=== PATIENT | male | born 1955 | race Caucasian/White ===

== ENCOUNTER → 2017-10-17 | Outpatient (CLI) | payer OTHER ==
[2015-09-04 18:40] VITALS: BP 116/73
[~2017-10-17] MED LIST: GLUC100018 PO; LOVA40TA2 PO
[2017-10-17 08:39] LABS: ALBUMIN 3.6 g/dL (3.4-5.0); CALCIUM 9.1 mg/dL (8.5-10.1); CREATININE 0.9 mg/dL (0.7-1.3); GFR 85.8; POTASSIUM 4.2 mmol/L (3.5-5.1); TOTAL BILIRUBIN 0.3 mg/dL (0.2-1.0); TOTAL PROTEIN 7.3 g/dL (6.4-8.2)
== END | disposition home or self-care (01) ==
LOC: LAB 07:36
PROVIDERS: ATTEND Family Medicine
DX: E78.4 Other hyperlipidemia (principal)
CPT/HCPCS: 36415; 80053; 80061

== ENCOUNTER → 2017-12-07 | Outpatient (CLI) | payer OTHER ==
[2015-09-04 18:40] VITALS: BP 116/73
--- NOTE | 2017-12-07 11:45 | RAD ---
Lumbar spine, 3 views, 12/07/2017: History: Low back pain The lumbar vertebral heights are well-maintained. There are moderate marginal spurs throughout the lumbar spine. There is mild disc space narrowing at multiple levels. There is moderate hypertrophic degenerative changes involving multiple facet joints bilaterally. No fracture or subluxation is evident. There is a small elongated left paraspinous calcification at the L2 level. Lower pelvic calcifications are compatible with phleboliths. IMPRESSION: 1. Moderate multilevel hypertrophic degenerative change throughout the lumbar spine. 2. No acute bony abnormality is detected. 3. Small left paraspinous calcification which may be vascular, however, a ureteral calculus cannot be excluded. Clinical correlation is suggested.
== END | disposition home or self-care (01) ==
LOC: DXRAD 10:23
PROVIDERS: ATTEND Family Medicine
DX: M54.31 Sciatica, right side (principal); M47.896 Other spondylosis, lumbar region; M48.061 Spinal stenosis, lumbar region without neurogenic claudication; I87.8 Other specified disorders of veins
CPT/HCPCS: 72100

== ENCOUNTER → 2019-01-14 | Outpatient (CLI) | payer OTHER ==
[2015-09-04 18:40] VITALS: BP 116/73
[2019-01-14 11:48] LABS: BASO # 0.1 x10^3/uL (0.0-0.2); BASO % 2 % (0-3); EOS # 0.3 x10^3/uL (0.0-0.7); EOS % 5 % (0-3); HEMOGLOBIN 14.7 g/dL (13.0-17.5); LYMPH % 20 % (24-48); MEAN CORPUSCULAR HEMOGLOBIN 29 pg (25-35); MEAN CORPUSCULAR HGB CONC 33 g/dL (31-37); MEAN CORPUSCULAR VOLUME 85 fL (79-100); MONO # 0.6 x10^3/uL (0.0-1.1); MONO % 12 % (0-9); NEUT # 3.1 x10^3uL (1.8-7.7); NEUT % 61 % (31-73); PLATELET COUNT 274 x10^3/uL (140-400); RED BLOOD COUNT 5.16 x10^6/uL (4.30-5.70); RED CELL DISTRIBUTION WIDTH 14.8 % (11.5-14.5); WHITE BLOOD COUNT 5.1 x10^3/uL (4.0-11.0)
[2019-01-14 12:37] LABS: ALBUMIN 3.6 g/dL (3.4-5.0); ALBUMIN/GLOBULIN RATIO 1.1 (1.0-1.7); CALCIUM 8.8 mg/dL (8.5-10.1); GFR 75.7; POTASSIUM 4.6 mmol/L (3.5-5.1); TOTAL BILIRUBIN 0.2 mg/dL (0.2-1.0); TOTAL PROTEIN 6.8 g/dL (6.4-8.2); URIC ACID 4.3 mg/dL (3.5-7.2)
[2019-01-14 13:00] LABS: SEDIMENTATION RATE 2 (0-15)
--- NOTE | 2019-01-14 13:10 | RAD ---
Left wrist, 3 views, 01/14/2019: HISTORY: Wrist pain and lump There is widening of the distance between the navicular and lunate bones compatible with ligamentous injury. A similar appearance was present on forearm radiographs from 09/04/2015. There is narrowing of the radiocarpal articulation with sclerotic change involving the articular surfaces at this level. There is spurring along the radial margin of the navicular bone. Several small periarticular calcifications or old bone fragments are evident. No acute fracture or dislocation is seen. There is mild soft tissue swelling. IMPRESSION: 1. Moderate degenerative change at the radiocarpal articulation with several small periarticular calcifications. 2. Widening of the scapholunate distance compatible with old ligamentous injury. Electronically signed by: Charles Abdul MD (01/14/2019 1:07 PM) [facility]
[2019-01-15 04:06] LABS: RHEUMATOID FACTOR <10.0 IU/mL (0.0-13.9)
[2019-01-16 17:09] LABS: ANA INTERP Negative (.)
== END | disposition home or self-care (01) ==
LOC: PMG 10:03
PROVIDERS: ATTEND Physician Assistant Medical
DX: M19.032 Primary osteoarthritis, left wrist (principal); M25.832 Other specified joint disorders, left wrist
CPT/HCPCS: 36415; 73110; 80053; 84550; 85025; 85651; 86038; 86431

== ENCOUNTER 2019-07-11 08:26 | Inpatient (IN) | payer OTHER ==
[~2019-07-11] VITALS: Ht 182.9 cm; Wt 89.8 kg
[2019-07-11] MEDS ORDERED: IV NORMAL SALINE 1,000ML 1,000 ML IV SCH (08:36)
--- NOTE | 2019-07-11 08:42 | EKG ---
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
[2019-07-11] MEDS ORDERED: NITROGLYCERIN SUBLINGUAL 0.4 MG BOTTLE OF 25. SL PRN ×2 (08:45→10:45)
[2019-07-11] MEDS ORDERED: ASPIRIN 81 MG TAB.CHEW PO ONE ×2 (08:45→15:15)
[2019-07-11 09:06] LABS: BASO # 0.1 x10^3/uL (0.0-0.2); BASO % 1 % (0-3); EOS # 0.2 x10^3/uL (0.0-0.7); EOS % 3 % (0-3); HEMATOCRIT 44.2 % (39.0-53.0); HEMOGLOBIN 14.6 g/dL (13.0-17.5); LYMPH # 0.7 x10^3/uL (1.0-4.8); LYMPH % 14 % (24-48); MEAN CORPUSCULAR HEMOGLOBIN 29 pg (25-35); MEAN CORPUSCULAR HGB CONC 33 g/dL (31-37); MEAN CORPUSCULAR VOLUME 87 fL (79-100); MONO # 0.3 x10^3/uL (0.0-1.1); MONO % 6 % (0-9); NEUT # 3.7 x10^3uL (1.8-7.7); NEUT % 75 % (31-73); PLATELET COUNT 233 x10^3/uL (140-400); RED BLOOD COUNT 5.07 x10^6/uL (4.30-5.70); RED CELL DISTRIBUTION WIDTH 14.8 % (11.5-14.5)
--- NOTE | 2019-07-11 09:13 | RAD ---
EXAM: CHEST ONE VIEW. HISTORY: Chest pain. COMPARISON: None. FINDINGS: A frontal view of the chest is obtained. There is mild atelectasis in the left base. There are no confluent infiltrates. There is no pneumothorax or pleural effusion. The heart is not enlarged. IMPRESSION: 1. No confluent infiltrates. Electronically signed by: Lazara Galeas MD (07/11/2019 9:10 AM) [facility]
[2019-07-11 09:22] LABS: ALBUMIN 3.4 g/dL (3.4-5.0); CALCIUM 8.2 mg/dL (8.5-10.1); CREATININE 1.1 mg/dL (0.7-1.3); GFR 67.8; MAGNESIUM 1.9 mg/dL (1.8-2.4); POTASSIUM 3.7 mmol/L (3.5-5.1); TOTAL BILIRUBIN 0.3 mg/dL (0.2-1.0); TOTAL PROTEIN 6.8 g/dL (6.4-8.2)
--- NOTE | 2019-07-11 09:57 | PHYS DOC ---
Past History Past Medical History: High Cholesterol Past Surgical History: Other Alcohol Use: None Drug Use: None Adult General Chief Complaint Chief Complaint: CHEST PAIN [facility] HPI Patient is a 63-year-old male who presents with complaint of chest pain that started about an hour prior to arrival. Patient indicates that pain is in his left upper chest. He states that at its maximal intensity, pain was approximately a 6 out of 10. He states that he became very diaphoretic but denied any nausea or vomiting. He states that at that point he became very concerned. Currently rates his pain to be a 2 out of 10. He denies any shortness of breath. Patient states that onset of pain was at rest.[] Review of Systems Review of Systems Constitutional: Denies fever or chills [] Respiratory: Denies cough or shortness of breath [] Cardiovascular: No additional information not addressed in HPI [] GI: Denies abdominal pain, nausea, vomiting or diarrhea [] Integument: Denies rash or skin lesions [] Neurologic: Denies headache, focal weakness or sensory changes [] All other systems were reviewed and found to be within normal limits, except as documented in this note. Current Medications Current Medications Current Medications Medications (Trade) Dose Ordered Sig/Anita Start Time Stop Time Status Last Admin Dose Admin Aspirin (Children'S Aspirin) 324 mg 1X ONCE 07/11/19 08:45 07/11/19 08:51 DC 07/11/19 08:53 324 MG Nitroglycerin (Nitrostat) 0.4 mg PRN Q5MIN PRN 07/11/19 08:45 07/12/19 08:44 Sodium Chloride 1,000 ml @ 1,000 mls/hr Q1H 07/11/19 08:36 07/11/19 09:35 DC Allergies Allergies Allergies Coded Allergies Type Severity Reaction Last Updated Verified No Known Drug Allergies 01/09/14 No Physical Exam Physical Exam Constitutional: Well developed, well nourished, no acute distress, non-toxic appearance. [] HENT: Normocephalic, atraumatic, bilateral external ears normal, oropharynx moist, no oral exudates, nose normal. [] Eyes: PERRLA, EOMI, conjunctiva normal, no discharge. [] Neck: Normal range of motion, no tenderness, supple, no stridor. [] Cardiovascular: Regular rate and rhythm[] Lungs & Thorax: Bilateral breath sounds clear to auscultation [] Abdomen: Bowel sounds normal, soft, no tenderness. [] Skin: Warm, dry, no erythema, no rash. [] Extremities: No tenderness, no cyanosis, no clubbing, ROM intact, no edema. [] Neurologic: Alert and oriented X 3, no focal deficits noted. [] Current Patient Data Lab Results Laboratory Tests Test 07/11/19 08:41 White Blood Count 5.0 x10^3/uL (4.0-11.0) Red Blood Count 5.07 x10^6/uL (4.30-5.70) Hemoglobin 14.6 g/dL (13.0-17.5) Hematocrit 44.2 % (39.0-53.0) Mean Corpuscular Volume 87 fL (79-100) Mean Corpuscular Hemoglobin 29 pg (25-35) Mean Corpuscular Hemoglobin Concent 33 g/dL (31-37) Red Cell Distribution Width 14.8 % (11.5-14.5) H Platelet Count 233 x10^3/uL (140-400) Neutrophils (%) (Auto) 75 % (31-73) H Lymphocytes (%) (Auto) 14 % (24-48) L Monocytes (%) (Auto) 6 % (0-9) Eosinophils (%) (Auto) 3 % (0-3) Basophils (%) (Auto) 1 % (0-3) Neutrophils # (Auto) 3.7 x10^3uL (1.8-7.7) Lymphocytes # (Auto) 0.7 x10^3/uL (1.0-4.8) L Monocytes # (Auto) 0.3 x10^3/uL (0.0-1.1) Eosinophils # (Auto) 0.2 x10^3/uL (0.0-0.7) Basophils # (Auto) 0.1 x10^3/uL (0.0-0.2) Sodium Level 140 mmol/L (136-145) Potassium Level 3.7 mmol/L (3.5-5.1) Chloride Level 105 mmol/L (98-107) Carbon Dioxide Level 28 mmol/L (21-32) Anion Gap 7 (6-14) Blood Urea Nitrogen 14 mg/dL (8-26) Creatinine 1.1 mg/dL (0.7-1.3) Estimated GFR (Cockcroft-Gault) 67.8 BUN/Creatinine Ratio 13 (6-20) Glucose Level 177 mg/dL (70-99) H Calcium Level 8.2 mg/dL (8.5-10.1) L Magnesium Level 1.9 mg/dL (1.8-2.4) Total Bilirubin 0.3 mg/dL (0.2-1.0) Aspartate Amino Transferase (AST) 17 U/L (15-37) Alanine Aminotransferase (ALT) 19 U/L (16-63) Alkaline Phosphatase 72 U/L (46-116) Troponin I Quantitative < 0.017 ng/mL (0-0.055) SY-Pjy-Z-Type Natriuretic Peptide 22 pg/mL (0-124) Total Protein 6.8 g/dL (6.4-8.2) Albumin 3.4 g/dL (3.4-5.0) Albumin/Globulin Ratio 1.0 (1.0-1.7) EKG EKG EKG demonstrates normal sinus rhythm with rate of 70.[] Radiology/Procedures Radiology/Procedures [] Impressions: PROCEDURE: PORTABLE CHEST 1V EXAM: CHEST ONE VIEW. HISTORY: Chest pain. COMPARISON: None. FINDINGS: A frontal view of the chest is obtained. There is mild atelectasis in the left base. There are no confluent infiltrates. There is no pneumothorax or pleural effusion. The heart is not enlarged. IMPRESSION: 1. No confluent infiltrates. Electronically signed by: Lazara Galeas MD (07/11/2019 9:10 AM) [facility] Course & Med Decision Making Course & Med Decision Making Pertinent Labs and Imaging studies reviewed. (See chart for details) [] Dragon Disclaimer Dragon Disclaimer This electronic medical record was generated, in whole or in part, using a voice recognition dictation system. Departure Departure: Impression: Primary Impression: Chest pain Disposition: ADMITTED INPATIENT Admitting Physician: Carlos Cerda Condition: IMPROVED Referrals: ANIL CHRISTIANSON MD (PCP) Problem Qualifiers Primary Impression: Chest pain Chest pain type: unspecified Qualified Codes: R07.9 - Chest pain, unspecified VANESSA VERDE Jr. DO Jul 11, 2019 09:57
[2019-07-11] MEDS ORDERED: MORPHINE SULFATE 2 MG/ML DISP.SYRIN. IV PRN (10:45)
[2019-07-11] MEDS ORDERED: ONDANSETRON PF 4 MG/2 ML VIAL. IV PRN (10:45)
[2019-07-11 11:37] LABS: BILIRUBIN,URINE NEG (NEG); CLARITY,URINE HAZY; COLOR,URINE YELLOW; GLUCOSE,URINE NEG (NEG)
[2019-07-11 11:38] LABS: BACTERIA,URINE 0 /HPF (0-FEW); HYALINE CASTS, URINE FEW /HPF; NITRITE,URINE NEG (NEG); UROBILINOGEN,URINE 0.2 mg/dL (0.2 mg/dL)
--- NOTE | 2019-07-11 13:51 | PDOC2 ---
WALT BEEBE VOUCHER EXAMINER 07/11/19 1351: CARDIAC CONSULT DATE OF CONSULT Date Of Consult DATE: 07/11/19 TIME: 13:49 REASON FOR CONSULT Reason for Consult Chest pain REFERRING PHYSICIAN Referring Physician Dr. Tejada SOURCE Source: Chart review, Patient HPI History of Present Illness This is a 63 yo male who presented secondary to chest pain. Patient reports pain began this morning while standing in the bathroom getting ready for the day. Pain located across his central chest. Describes as pressure. Associated with diaphoresis. No shortness of breath, palpitation, dizziness, or nausea/vomiting. Patient reports friend suffered heart attack about a month ago so he decided to come to the ED for further evaluation. Pain resolved prior to arrival without intervention. Patient additionally denies any recent WARD or chest pain upon exe rtion. No h/o CAD. PAST MEDICAL HISTORY Cardiovascular: hyperipidemia Musculoskeletal: Osteoarthritis PAST SURGICAL HISTORY Past Surgical History: Hernia Repair, No pertinent history FAMILY HISTORY Family History: Hypertension SOCIAL HISTORY Smoke: No ALCOHOL: none Drugs: None Lives: with Family CURRENT MEDICATIONS Current Medications Current Medications Aspirin (Children'S Aspirin) 324 mg 1X ONCE PO Last administered on 07/11/19at 08:53; Start 07/11/19 at 08:45; Stop 07/11/19 at 08:51; Status DC Nitroglycerin (Nitrostat) 0.4 mg PRN Q5MIN PRN SL CP RATING > 1/10; Start 07/11/19 at 08:45; Stop 07/11/19 at 12:26; Status DC Sodium Chloride 1,000 ml @ 1,000 mls/hr Q1H IV ; Start 07/11/19 at 08:36; Stop 07/11/19 at 09:35; Status DC Ondansetron HCl (Zofran) 4 mg PRN Q4HRS PRN IV NAUSEA/VOMITING; Start 07/11/19 at 10:45; Stop 07/12/19 at 10:44 Morphine Sulfate (Morphine 2mg Syringe) 2 mg PRN Q2HR PRN IV PAIN; Start 07/11/19 at 10:45; Stop 07/12/19 at 10:44 Nitroglycerin (Nitrostat) 0.4 mg PRN Q5MIN PRN SL CHEST PAIN; Start 07/11/19 at 10:45; Stop 07/12/19 at 10:44 Active Scripts Active Reported Lovastatin 40 Mg Tablet 40 Mg PO Glucosamine (Glucosamine Sulfate 2KCL) 1,000 Mg Tablet 1,000 Mg PO ALLERGIES Allergies: Coded Allergies: No Known Drug Allergies (Unverified , 01/09/14) ROS Review of Systems 14 point ROS conducted with pertinent positives noted above in HPI. PHYSICAL EXAM General: Alert, Oriented X3, Cooperative, No acute distress HEENT: Atraumatic, Mucous membr. moist/pink Lungs: Clear to auscultation, Normal air movement Heart: Regular rate, Normal S1, Normal S2, No murmurs Abdomen: Soft, No tenderness Extremities: No edema, Normal pulses Skin: No breakdown Neuro: Normal speech, Sensation intact Psych/Mental Status: Mental status NL, Mood NL MUSCULOSKELETAL: No deformity, Osteoarthritic changes both hands VITALS Vital Signs Vital Signs Date Time Temp Pulse Resp B/P (MAP) Pulse Ox O2 Delivery O2 Flow Rate FiO2 07/11/19 10:11 98.2 79 18 98 Room Air LABS LABS Laboratory Tests Test 07/11/19 08:41 07/11/19 11:05 White Blood Count 5.0 x10^3/uL (4.0-11.0) Red Blood Count 5.07 x10^6/uL (4.30-5.70) Hemoglobin 14.6 g/dL (13.0-17.5) Hematocrit 44.2 % (39.0-53.0) Mean Corpuscular Volume 87 fL (79-100) Mean Corpuscular Hemoglobin 29 pg (25-35) Mean Corpuscular Hemoglobin Concent 33 g/dL (31-37) Red Cell Distribution Width 14.8 % (11.5-14.5) Platelet Count 233 x10^3/uL (140-400) Neutrophils (%) (Auto) 75 % (31-73) Lymphocytes (%) (Auto) 14 % (24-48) Monocytes (%) (Auto) 6 % (0-9) Eosinophils (%) (Auto) 3 % (0-3) Basophils (%) (Auto) 1 % (0-3) Neutrophils # (Auto) 3.7 x10^3uL (1.8-7.7) Lymphocytes # (Auto) 0.7 x10^3/uL (1.0-4.8) Monocytes # (Auto) 0.3 x10^3/uL (0.0-1.1) Eosinophils # (Auto) 0.2 x10^3/uL (0.0-0.7) Basophils # (Auto) 0.1 x10^3/uL (0.0-0.2) Sodium Level 140 mmol/L (136-145) Potassium Level 3.7 mmol/L (3.5-5.1) Chloride Level 105 mmol/L (98-107) Carbon Dioxide Level 28 mmol/L (21-32) Anion Gap 7 (6-14) Blood Urea Nitrogen 14 mg/dL (8-26) Creatinine 1.1 mg/dL (0.7-1.3) Estimated GFR (Cockcroft-Gault) 67.8 BUN/Creatinine Ratio 13 (6-20) Glucose Level 177 mg/dL (70-99) Calcium Level 8.2 mg/dL (8.5-10.1) Magnesium Level 1.9 mg/dL (1.8-2.4) Total Bilirubin 0.3 mg/dL (0.2-1.0) Aspartate Amino Transf (AST/SGOT) 17 U/L (15-37) Alanine Aminotransferase (ALT/SGPT) 19 U/L (16-63) Alkaline Phosphatase 72 U/L (46-116) Troponin I Quantitative < 0.017 ng/mL (0-0.055) DZ-Kve-X-Type Natriuretic Peptide 22 pg/mL (0-124) Total Protein 6.8 g/dL (6.4-8.2) Albumin 3.4 g/dL (3.4-5.0) Albumin/Globulin Ratio 1.0 (1.0-1.7) Urine Collection Type Unknown Urine Color Yellow Urine Clarity Hazy Urine pH 6.0 Urine Specific [place] 1.025 Urine Protein Trace (NEG-TRACE) Urine Glucose (UA) Neg mg/dL (NEG) Urine Ketones (Stick) Neg mg/dL (NEG) Urine Blood Neg (NEG) Urine Nitrite Neg (NEG) Urine Bilirubin Neg (NEG) Urine Urobilinogen Dipstick 0.2 mg/dL (0.2 mg/dL) Urine Leukocyte Esterase Neg (NEG) Urine RBC 1-2 /HPF (0-2) Urine WBC 1-4 /HPF (0-4) Urine Squamous Epithelial Cells None /LPF Urine Bacteria 0 /HPF (0-FEW) Urine Hyaline Casts Few /HPF Urine Mucus Mod /LPF ASSESSMENT/PLAN Assessment/Plan 1. Chest pain with typical features 2. NSTEMI; second troponin 0.28 3. Hyperlipidemia Recommendations Start heparin gtt per CV protocol ASA, BB, statin Lipid panel Echo to assess LV systolic function Will transfer to [facility] for cardiac cath. NPO p MN. STEFANIE PATTERSON MD 07/11/192030: CARDIAC CONSULT ASSESSMENT/PLAN Assessment/Plan Patient seen and examined. Agree with TOOL AND DIE ASSEMBLER's assessment and plan. Patient with CP with typical features and elevated troponin c/w NSTEMI Agree with heparin infusion per protocol Plan cardiac cath tomorrow at [facility]. Risks and benefits explained and he is agreeable. Thank you for your consultation WALT BEEBE APRN Jul 11, 2019 13:51 STEFANIE PATTERSON MD Jul 11, 2019 20:31
[2019-07-11 15:07] VITALS: BP 137/86
[2019-07-11] MEDS ORDERED: HEPARIN 25,000UTS/500ML PREMIX 500 ML IV PRN ×2 (15:30→17:30)
--- NOTE | 2019-07-11 16:16 | CARD ---
MR#: [id number] Date of Study: 07/11/2019 Ordering Physician: WALT BEEBE, Referring Physician: WALT BEEBE, Tech: Nandini Oliver RDCS APPROVED REPORT EXAM: Two-dimensional and M-mode echocardiogram with Doppler and color Doppler. Other Information Quality : AverageHR: 76bpm Rhythm : NSR INDICATION Chest Pain 2D DIMENSIONS RVDd3.0 (2.9-3.5cm)Left Atrium(2D)3.9 (1.6-4.0cm) IVSd1.6 (0.7-1.1cm)Aortic Root(2D)3.6 (2.0-3.7cm) LVDd4.5 (3.9-5.9cm)PWd1.1 (0.7-1.1cm) LVDs3.4 (2.5-4.0cm)FS (%) 25.7 % SV47.2 mlLVEF(%)50.7 (>50%) Aortic Valve AoV Peak Aydin.107.9cm/sAoV VTI19.0cm AO Peak GR.4.7mmHgAO Mean GR.2mmHg ISIDRO (VTI)3.33cm2 Mitral Valve MV E Btrvroaq90.8cm/sMV DECEL ICWB492rw MV A Xdthrpfr28.8cm/sE/A Ratio1.1 MV A [id number] Tricuspid Valve TR P. Glukptiy617wk/sRAP NMLRVFLJ9bmSh TR Peak Gr.51mxLzHDMB85ohXv LEFT VENTRICLE The left ventricle is normal size. There is mild concentric left ventricular hypertrophy. Left ventri luciana systolic function is low normal. The Ejection Fraction is 50%. Transmitral Doppler flow pattern i s Grade II-pseudonormal filling dynamics. RIGHT VENTRICLE The right ventricle is normal size. There is normal right ventricular wall thickness. The right ventr icular systolic function is normal. ATRIA The left atrium is borderline dilated. The right atrium size is normal. The interatrial septum is int act with no evidence for an atrial septal defect or patent foramen ovale as noted on 2-D or Doppler i maging. AORTIC VALVE The aortic valve is thickened but opens well. The aortic valve is trileaflet. Doppler and Color Flow revealed no significant aortic regurgitation. There is no significant aortic valvular stenosis. There is no aortic valvular vegetation. MITRAL VALVE The mitral valve is normal in structure and function. There is no evidence of mitral valve prolapse. There is no mitral valve stenosis. Doppler and Color-flow revealed trace to mild mitral regurgitation . TRICUSPID VALVE The tricuspid valve is normal in structure and function. Doppler and Color Flow revealed trace tricus pid regurgitation. The PA pressure was estimated at 27 mmHg. There is no tricuspid valve prolapse or vegetation. There is no tricuspid valve stenosis. PULMONIC VALVE The pulmonic valve is not well visualized. GREAT VESSELS The aortic root is normal in size. The ascending aorta is normal in size. The IVC is normal in size a nd collapses >50% with inspiration. PERICARDIAL EFFUSION There is no evidence of significant pericardial effusion. Critical Notification Critical Value: No <Conclusion> Left ventricle systolic function is low normal. The Ejection Fraction is 50%. Trace to mild mitral regurgitation. Trace tricuspid regurgitation. The PA pressure was estimated at 27 mmHg. There is no evidence of significant pericardial effusion. Signed by : Dominick Nicole, Electronically Approved : 07/11/2019 16:16:16
--- NOTE | 2019-07-11 16:40 | HP ---
ADMIT DATE: 07/11/2019 HISTORY OF PRESENT ILLNESS: The patient is a 63-year-old male patient, who came to the Emergency Room with complaint of a chest pressure that started about an hour prior to arrival. The pain was in his left upper chest. He stated at its maximum intensity, it was about approximately 6/10. He became very diaphoretic. He had mild nausea, but no vomiting, no radiation, and no shortness of breath. His pain has started at rest. By the time, he arrived to the Emergency Room, it was only 2/10 in severity. He was extensively investigated and has had an EKG, which showed that he was in normal sinus rhythm at the rate of 70 beats per minute. Chest x-ray showed there are no confluent infiltrates, pneumothorax, or pleural effusion. The heart is not enlarged. His lab work showed his first set of cardiac enzymes showed troponin to be less than 0.017. He was admitted to do 2 more sets of cardiac enzymes, to consult the dental manager, and check his fasting lipid profile if he stays overnight. PAST MEDICAL HISTORY: Significant for hyperlipidemia and benign prostatic hypertrophy. PAST SURGICAL HISTORY: Significant for bilateral inguinal hernia repair. He has had also a colonoscopy. ALLERGIES: He has no known drug allergies. MEDICATIONS: He is currently on no medication by prescription. He takes ibuprofen and other lovr-mko-iheqjsj medication as needed. FAMILY HISTORY: He has 5 siblings, 3 older and 2 younger, all healthy. His father is still alive at the age of 91 and mother alive at the age of 88. SOCIAL HISTORY: He is , never smoked, and does not drink alcohol or use recreational drugs. 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 REVIEW OF SYSTEMS: The patient denied any blurring of vision, cataract, glaucoma, or macular degeneration. 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 Denied any nosebleeds, stuffy nose, or postnasal drip. Denied any sore throat, sore tongue, toothache, hoarseness of voice, or difficulty swallowing. He did complain of nausea, but no vomiting. Denied any diarrhea or constipation. Denied any hematemesis, melena, or hematochezia. Denied any dysuria, frequency, or hematuria. Did complain of nocturia up to 3 times. He denied any orthopnea or paroxysmal nocturnal dyspnea. He denied any cough, phlegm, or hemoptysis. Denied any dizziness, lightheadedness, or vertigo. PHYSICAL EXAMINATION: GENERAL: On arrival to the Emergency Room, he looked well and was clearly in no apparent respiratory distress. No pallor, jaundice, cyanosis, or thyromegaly. No jugular venous distension. No limb edema. VITAL SIGNS: His temperature was 98.2, respiratory rate was 18, oxygen saturation was 98%, and heart rate was 79. HEAD, EYES, EARS, NOSE, AND THROAT: Showed normocephalic and atraumatic. NECK: Supple. HEART: Showed normal first and second heart sounds. No gallop or murmur. CHEST: Clear to auscultation. No crepitation or rhonchi. ABDOMEN: Distended, soft, and nontender. NEUROLOGIC: He was awake, alert, and responding appropriately. All cranial nerves were intact. EXTREMITIES: He moves extremities without difficulty. LABORATORY WORK: Showed a serum sodium 140, potassium 3.7, chloride 105, bicarbonate 28, anion gap of 7, BUN 14, and creatinine 1.1. Estimated GFR was 68 mL per minute, his glucose was 177, calcium was 8.2, and magnesium was 1.9. Total bilirubin, AST, ALT, and alkaline phosphatase were normal. Troponin was less than 0.017. Beta-natriuretic peptide was 22. Total protein was 6.8 and albumin was 3.7. His white cell count was 5000, hemoglobin 14.6, hematocrit 44, MCV 87, and platelet count 233,000 with a normal manual differential. His urinalysis was unremarkable. While I am dictating, his second set of cardiac enzymes showed his troponin was elevated at 0.283. ASSESSMENT AND PLAN: The patient was admitted with the chest pain. His troponin is trending up. He will be started on heparin drip; however, they consulted the Cardiology team and he might require be transferred to [facility] for cardiac catheterization. GILSON LAZO MD DR: RONDA/beckie JOB#: [id number] / [id number]
[2019-07-11] MEDS ORDERED: HEPARIN for IV BOLUS 10,000 UNIT/10 ML VIAL. IV ONE (17:30)
[2019-07-11] MEDS ORDERED: HEPARIN for IV BOLUS 10,000 UNIT/10 ML VIAL. IV PRN ×2 (17:30)
[2019-07-11] MEDS ORDERED: ATORVASTATIN CALCIUM 20 MG TABLET PO SCH (21:00)
[2019-07-11] MEDS ORDERED: METOPROLOL TART IMMED RELEASE 25 MG TABLET PO SCH (21:00)
[2019-07-12] MEDS ORDERED: ASPIRIN 325 MG TABLET PO SCH (08:00)
[2019-07-12 10:37] LABS: THYROID STIM HORMONE (TSH) 2.283 uIU/mL (0.358-3.740)
== END 2019-07-11 20:00 | disposition short-term general hospital (02) | DRG 282 ==
LOC: ER 08:26 → 1 SOUTH 12:17
PROVIDERS: ADMIT Internal Medicine; ATTEND Internal Medicine
DX: I21.4 Non-ST elevation (NSTEMI) myocardial infarction (principal); E78.00 Pure hypercholesterolemia, unspecified; E78.5 Hyperlipidemia, unspecified; M19.90 Unspecified osteoarthritis, unspecified site; N40.0 Benign prostatic hyperplasia without lower urinary tract symptoms; Z82.49 Family history of ischemic heart disease and other diseases of the circulatory system; Z79.899 Other long term (current) drug therapy
CPT/HCPCS: 36415; 71045; 80053; 80061; 81001; 83735; 83880; 84443; 84484; 85025; 85610; 85730; 93005; 93306; J1644; 99285-25

== ENCOUNTER → 2020-02-24 | Outpatient (CLI) | payer OTHER | END | disposition home or self-care (01) | LOC: LAB 08:04 | PROVIDERS: ATTEND Internal Medicine Cardiovascular Disease | DX: I25.10 Atherosclerotic heart disease of native coronary artery without angina pectoris (principal) | CPT/HCPCS: 80061 ==

== ENCOUNTER 2020-07-02 21:19 | Emergency (ER) | payer OTHER ==
[~2020-07-02] VITALS: Ht 180.3 cm; Wt 89.5 kg
[2020-07-02 21:33] VITALS: BP 126/60
[2020-07-02] MEDS: OXYMETAZOLINE 0.05% NASAL SPRAY 30ML BOTTLE. NS ONE (21:47)
--- NOTE | 2020-07-02 22:21 | PHYS DOC ---
Past History Past Medical History: [place]th[place], [place] Past Surgical History: Angioplasty, Other Additional Past Surgical Histo: cardiac stents;hernia repair Alcohol Use: None Drug Use: None General Adult EDM: Chief Complaint: NOSEBLEED HPI: HPI: 64-year-old male presents with nosebleed. 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 It seemed like it was on the left. The bleeding increased rapidly and he had difficulty getting it to stop. While he was trying direct pressure at home it seemed like the right nare started to bleed as well. He could not get it to stop so he came to the emergency room. The patient is on a blood thinner because he has 2 stents. He denies nausea, vomiting, dizziness, shortness of breath. He has no other complaints at this time. He denies fever or chills. He denies trauma. He does work outside in a [employer] environment. Review of Systems: Review of Systems: Constitutional: Denies fever or chills Eyes: Denies change in visual acuity HENT: Nosebleed Respiratory: Denies cough or shortness of breath Cardiovascular: Denies chest pain or edema GI: Denies abdominal pain, nausea, vomiting, bloody stools or diarrhea : Denies dysuria Musculoskeletal: Denies back pain or joint pain Integument: Denies rash Neurologic: Denies headache, focal weakness or sensory changes Endocrine: Denies polyuria or polydipsia Lymphatic: Denies swollen glands Psychiatric: Denies depression or anxiety Heart Score: Risk Factors: Risk Factors: DM, Current or recent (<one month) smoker, HTN, HLP, family history of CAD, obesity. Risk Scores: Score 0 - 3: 2.5% MACE over next 6 weeks - Discharge Home Score 4 - 6: 20.3% MACE over next 6 weeks - Admit for Clinical Observation Score 7 - 10: 72.7% MACE over next 6 weeks - Early Invasive Strategies Current Medications: Current Meds: Current Medications Medications (Trade) Dose Ordered Sig/Anita Start Time Stop Time Status Last Admin Dose Admin Oxymetazoline HCl (Afrin) 2 spray 1X ONCE 07/02/20 21:45 07/02/20 21:46 DC 07/02/20 21:47 2 SPRAY Allergies: Allergies: Allergies Coded Allergies Type Severity Reaction Last Updated Verified No Known Drug Allergies 07/02/20 No Physical Exam: PE: Constitutional: Well developed, well nourished, no acute distress, non-toxic appearance. [] HENT: Normocephalic, atraumatic, bilateral external ears normal, oropharynx moist, no oral exudates, nose with evidence of recent clot in the bilateral nares against the septum. [] Eyes: PERRLA, EOMI, conjunctiva normal, no discharge. [] Neck: Normal range of motion, no tenderness, supple, no stridor. [] Cardiovascular: Heart rate regular rhythm, no murmur [] Lungs & Thorax: Bilateral breath sounds clear to auscultation [] Abdomen: Bowel sounds normal, soft, no tenderness, no masses, no pulsatile masses. [] Skin: Warm, dry, no erythema, no rash. [] Back: No tenderness, no CVA tenderness. [] Extremities: No tenderness, no cyanosis, no clubbing, ROM intact, no edema. [] Neurologic: Alert and oriented X 3, normal motor function, normal sensory function, no focal deficits noted. [] Psychologic: Affect normal, judgement normal, mood normal. [] Current Patient Data: Vital Signs: Vital Signs Date Time Temp Pulse Resp B/P (MAP) Pulse Ox O2 Delivery O2 Flow Rate FiO2 07/02/20 21:33 98.7 60 18 126/60 (82) 96 Room Air EKG: EKG: [] Radiology/Procedures: Radiology/Procedures: [] Course & Med Decision Making: Course & Med Decision Making Pertinent Labs and Imaging studies reviewed. (See chart for details) On arrival, the patient was given 2 sprays of Afrin in both nares and a mechanical compression device was applied to his nose. After period of time this was removed and the bleeding had stopped. I did see evidence of recent bleeding along the septum on both sides. There was no hematoma or other concerning sign. I advised patient not to blow his nose for at least an hour or even wait till morning if possible. The patient is stable for discharge at this time. [] Dragon Disclaimer: Dragon Disclaimer: This electronic medical record was generated, in whole or in part, using a voice recognition dictation system. Departure Departure: Impression: Primary Impression: Left-sided nosebleed Additional Impression: Right-sided nosebleed Disposition: 01 DC HOME SELF CARE/HOMELESS Condition: STABLE Referrals: ANIL CHRISTIANSON MD (PCP) Patient Instructions: Nosebleed, [id number]-ly-Twpy CLAIRE MILES DO Jul 02, 2020 22:21
== END 2020-07-02 22:24 | disposition home or self-care (01) ==
LOC: ER 21:19
DX: R04.0 Epistaxis (principal); M19.90 Unspecified osteoarthritis, unspecified site; I25.2 Old myocardial infarction; Z98.61 Coronary angioplasty status
CPT/HCPCS: 99282

== ENCOUNTER → 2020-08-19 | Outpatient (CLI) | payer OTHER | LOC: LAB 07:34 | PROVIDERS: ATTEND Internal Medicine Cardiovascular Disease | DX: I25.10 Atherosclerotic heart disease of native coronary artery without angina pectoris (principal) | CPT/HCPCS: 80061 ==

== ENCOUNTER → 2020-12-07 | Outpatient (CLI) | payer OTHER ==
--- NOTE | 2020-12-07 10:15 | RAD ---
EXAMINATION: RIGHT LOWER EXTREMITY - UNILATERAL VENOUS DOPPLER. Technique: Ultrasound evaluation of the right lower extremity was performed from the groin to the upp er calf with pierre scale, spectral and color doppler evaluation. Indication: Leg swelling Comparison: None Findings: There is normal venous flow and compressibility of right common femoral vein, femoral vein, popliteal vein, and visualized proximal calf veins. Subcutaneous edema about the right lower leg/jane f. Impression: No evidence for deep vein thrombosis of right lower extremity from the level of the calf veins to the groins. Electronically signed by: James Khan MD (12/07/2020 10:13 AM) [id number]
== END ==
LOC: US 09:33
PROVIDERS: ATTEND Physician Assistant Medical
DX: R22.41 Localized swelling, mass and lump, right lower limb (principal)
CPT/HCPCS: 93971

== ENCOUNTER → 2021-04-13 | Outpatient (CLI) | payer OTHER ==
--- NOTE | 2021-04-13 18:13 | RAD ---
Exam: Left shoulder 3 views INDICATION: Left shoulder pain, status post injury TECHNIQUE: Frontal view of the left shoulder with internal and external rotation and transscapular Y views Comparisons: None FINDINGS: Bone mineralization is normal. No acute or healed fractures. Soft tissues are unremarkable. Joint spa ashley are well-maintained. IMPRESSION: No acute osseous abnormality. Electronically signed by: Noy Kemp MD (04/13/2021 6:10 PM) JUAN LUIS
== END ==
LOC: RAD 17:30
PROVIDERS: ATTEND Nurse Practitioner Family
DX: M25.512 Pain in left shoulder (principal)
CPT/HCPCS: 73030

== ENCOUNTER → 2021-09-13 | Outpatient (CLI) | payer OTHER ==
--- NOTE | 2021-09-14 12:36 | CARD ---
MR#: [id number] Date of Study: 09/13/2021 Ordering Physician: STEFANIE PATTERSON, Referring Physician: STEFANIE PATTERSON, Tech: Estrellita Bautista [facility] APPROVED REPORT EXAM: Two-dimensional and M-mode echocardiogram with Doppler and color Doppler. Other Information Quality : AverageHR: 61bpm Technically limited study due to body habitus. INDICATION Cardiac Disease: CAD RISK FACTORS Hyperlipidemia 2D DIMENSIONS RVDd3.9 (2.9-3.5cm)Left Atrium(2D)3.6 (1.6-4.0cm) IVSd1.0 (0.7-1.1cm)Aortic Root(2D)2.7 (2.0-3.7cm) LVDd5.5 (3.9-5.9cm)LVOT Diameter1.1 (1.8-2.4cm) PWd1.1 (0.7-1.1cm)LVDs3.8 (2.5-4.0cm) FS (%) 29.7 %SV81.2 ml LVEF(%)56.2 (>50%) Aortic Valve AoV Peak Aydin.106.1cm/sAoV VTI21.9cm AO Peak GR.3.7mmHgLVOT Peak Aydin.83.0cm/s LVOT VTI 17.09cmAO Mean GR.2mmHg ISIDRO (VMAX)0.46ww3EIN (VTI)0.75cm2 Mitral Valve MV E Egfpljvz10.3cm/sMV E Peak Gr.2mmHg MV DECEL [id number] A Bjrovtvk21.0cm/s MV E Mean Gr.1mmHgE/A Ratio1.1 Pulmonary Valve PV Peak Wccxftqz85.0cm/sPV Peak Grad.3mmHg Tricuspid Valve TR P. [id number]/sRAP [id number] TR Peak Gr.93scWbHBYR43fkNj LEFT VENTRICLE The left ventricle is normal size. There is mild concentric left ventricular hypertrophy. The left ve ntricular systolic function is normal and the ejection fraction is within normal range. EF 55% There is normal LV segmental wall motion. Transmitral Doppler flow pattern is Grade II-pseudonormal filling dynamics. RIGHT VENTRICLE The right ventricle is mildly dilated. There is normal right ventricular wall thickness. The right ve ntricular systolic function is normal. ATRIA The left atrium size is normal. The right atrium is mildly dilated. The interatrial septum is intact with no evidence for an atrial septal defect or patent foramen ovale as noted on 2-D or Doppler imagi ng. AORTIC VALVE The aortic valve is normal in structure and function. Doppler and Color Flow revealed no significant aortic regurgitation. There is no significant aortic valvular stenosis. There is a maximum pressure g radient of 5 mmHg and mean pressure gradient of 2 mmHg. MITRAL VALVE The mitral valve is normal in structure and function. There is no evidence of mitral valve prolapse. There is no mitral valve stenosis. Doppler and Color-flow revealed trace mitral regurgitation. TRICUSPID VALVE The tricuspid valve is normal in structure and function. Doppler and Color Flow revealed trace tricus pid regurgitation with an estimated PAP of 32 mmHg. There is no tricuspid valve stenosis. PULMONIC VALVE The pulmonic valve is not well visualized. Doppler and Color Flow revealed trace pulmonic valvular re gurgitation. There is no pulmonic valvular stenosis. GREAT VESSELS The aortic root is normal in size. The IVC is normal in size and collapses >50% with inspiration. PERICARDIAL EFFUSION There is no evidence of significant pericardial effusion. Critical Notification Critical Value: No <Conclusion> The left ventricular systolic function is normal and the ejection fraction is within normal range. EF 55% There is normal LV segmental wall motion. Signed by : Roney Aaron, Electronically Approved : 09/14/2021 12:35:45
== END ==
LOC: ECHO 08:39
PROVIDERS: ATTEND Internal Medicine Cardiovascular Disease
DX: I51.7 Cardiomegaly (principal); I25.10 Atherosclerotic heart disease of native coronary artery without angina pectoris
CPT/HCPCS: 93306

== ENCOUNTER → 2022-01-06 | Outpatient (CLI) | payer BC ==
--- NOTE | 2022-01-06 10:20 | RAD ---
EXAM: XR KNEE 1-2 VIEWS, XR KNEE_AP BILAT STANDING 01/06/2022 9:35 AM CLINICAL INDICATION: Chronic knee pain COMPARISON: None TECHNIQUE: Standing AP view of the bilateral knees. Lateral view of the right and left knee. [place] view of the bilateral knees. FINDINGS: No acute fracture or malalignment. There is severe medial compartment narrowing bilaterally, greater on the left. Mild patellofemoral compartment narrowing bilaterally. There are small tricompartmental osteophytes. Mild degenerative genu varum. Small joint effusions bilaterally. 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 This is greater on the left. Electronically signed by: Shirley Luciano MD (01/06/2022 10:18 AM) [id number]
== END ==
LOC: RAD 09:18
PROVIDERS: ATTEND Physician Assistant
DX: M17.0 Bilateral primary osteoarthritis of knee (principal); M25.461 Effusion, right knee; M25.462 Effusion, left knee; M25.761 Osteophyte, right knee; M25.762 Osteophyte, left knee; M21.162 Varus deformity, not elsewhere classified, left knee; M21.161 Varus deformity, not elsewhere classified, right knee; M25.861 Other specified joint disorders, right knee; M25.862 Other specified joint disorders, left knee
CPT/HCPCS: 73565; 73560-50